=== PATIENT | female | born 1940 ===

== ENCOUNTER → 2021-10-31 | Day surgery (SDC) | payer MEDICARE, OTHER ==
[~2021-10-31] VITALS: Ht 165.1 cm; Wt 83.5 kg
[~2021-10-31] MED LIST: ALDACTONE25 M1 PO; ANORO ELLIPTA1 EACH INH; CIPRO500 MG PO; CYCLOBENZAPRINE5 M3 PO; DOXYCYCLINE50 M2 PO; FISH OIL CONC1000 M1 PO; LASIX20 MG PO; METFORMIN HYDR500 MG PO; OMEPRAZOLE40 MG PO; PERCOCET 7.5-31 EACH PO; REQUIP2 MG PO; TOPROL XL100 MG PO; VALSARTAN-HCTZ1 EAC2 PO; VITAMIN B121000 MC1 PO; VITAMIN D325 MCG PO; VITAMIN E90 M1 PO; XARELTO10 MG PO; ZETIA10 MG PO
[2021-10-31 14:17] VITALS: BP 124/38
[2021-10-31 14:32] VITALS: BP 133/55
[2021-10-31 14:47] VITALS: BP 126/53
[2021-11-01 12:05] LABS: ACID FAST SPEC PROCESSING Tissue Grinding (.)
== END | disposition home or self-care (01) ==
LOC: SDC 10-26 14:00
PROVIDERS: ATTEND Podiatrist
DX: T84.84XA Pain due to internal orthopedic prosthetic devices, implants and grafts, initial encounter (principal); M86.8X7 Other osteomyelitis, ankle and foot; I10 Essential (primary) hypertension; E11.9 Type 2 diabetes mellitus without complications; K21.9 Gastro-esophageal reflux disease without esophagitis; Z87.891 Personal history of nicotine dependence; Z79.899 Other long term (current) drug therapy; Y82.8 Other medical devices associated with adverse incidents; Z20.822 Contact with and (suspected) exposure to COVID-19

== ENCOUNTER 2021-11-10 10:49 | Emergency (ER) | payer MEDICARE, OTHER ==
[2021-11-14] MEDS ORDERED: PERCOCET 7.5-31 EACH PO (12:08)
[2021-11-14] MEDS ORDERED: XARELTO10 MG PO (12:08)
[2021-11-14] MEDS ORDERED: CIPRO500 MG PO (12:08)
== END 2021-11-10 12:16 | disposition home or self-care (01) ==
LOC: ED 10:49
DX: M79.672 Pain in left foot (principal); Z88.0 Allergy status to penicillin; Z79.899 Other long term (current) drug therapy

== ENCOUNTER → 2021-11-14 | Day surgery (SDC) | payer MEDICARE, OTHER ==
[~2021-11-14] VITALS: Ht 165.1 cm; Wt 83.5 kg
[2021-11-14 09:36] VITALS: BP 121/100
[2021-11-14 12:02] VITALS: BP 114/39
[2021-11-14 12:17] VITALS: BP 133/50
[2021-11-14 12:32] VITALS: BP 127/48
[2021-11-15 14:08] LABS: ACID FAST SPEC PROCESSING Tissue Grinding (.)
== END | disposition home or self-care (01) ==
LOC: SDC 11-09 10:15
PROVIDERS: ATTEND Podiatrist
DX: S91.002A Unspecified open wound, left ankle, initial encounter (principal); I10 Essential (primary) hypertension; E11.9 Type 2 diabetes mellitus without complications; K21.9 Gastro-esophageal reflux disease without esophagitis; Z87.891 Personal history of nicotine dependence; X58.XXXA Exposure to other specified factors, initial encounter; Y93.89 Activity, other specified; Y92.89 Other specified places as the place of occurrence of the external cause; Y99.8 Other external cause status

== ENCOUNTER 2021-12-16 14:58 | Emergency (ER) | payer MEDICARE, OTHER | END 2021-12-16 18:03 | disposition home or self-care (01) | LOC: ED 14:58 | DX: Z48.01 Encounter for change or removal of surgical wound dressing (principal); Z79.899 Other long term (current) drug therapy; Z98.890 Other specified postprocedural states; Z88.0 Allergy status to penicillin ==